=== PATIENT | male | born 1960 ===

== ENCOUNTER → 2024-01-06 10:48 | Outpatient (BNVA) | payer MEDICAID, SELFPAY | PROVIDERS: PCP Registered Nurse; Referring Provider Registered Nurse; Visit Provider Specialist | DX: G40.909 Epilepsy, unspecified, not intractable, without status epilepticus; R03.0 Elevated blood-pressure reading, without diagnosis of hypertension; I63.81 Other cerebral infarction due to occlusion or stenosis of small artery | CPT/HCPCS: 99204; 99205 ==

== ENCOUNTER 2024-02-01 09:43 | Outpatient (CLI) | payer MEDICAID, SELFPAY ==
--- NOTE | 2024-02-01 10:15 | MR_ITS ---
WS: [id number] MRI HEAD WITHOUT CONTRAST TECHNIQUE: Sagittal T1, T2 axial, T2 axial FLAIR, axial and coronal T1 images, axial susceptibility w eighted imaging, axial diffusion weighted images, and coronal T2 images were obtained. CLINICAL INFORMATION: R56.9 - Unspecified convulsions COMPARISON: None. FINDINGS: No evidence of restricted diffusion to suggest acute ischemia. Ventricular system and basal cisterns are patent. Mild small vessel changes. Mild parenchymal volume loss. Chronic infarct LEFT frontal lob e with encephalomalacia and gliosis. Chronic infarcts RIGHT cerebellum. Tiny chronic lacunar infarcts LEFT cerebellum. Normal vascular flow voids at the skull base. No extra-axial fluid collections. No evidence of mass or mass effect. Paranasal sinuses and mastoid air cells are well aerated. Normal pos terior nasopharynx. No hemosiderin on the susceptibility weighted images. Normal optic chiasm and pituitary infundibulum. Temporal lobes and hippocampal formations are normal in appearance. Mild symmetric atrophy temporal lobes and hippocampal formations. MR/MR head wo con* [id number] IMPRESSION: 1. No evidence of restricted diffusion to suggest acute ischemia. 2. Mild small vessel changes with mild parenchymal volume loss. 3. 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 Chronic infarcts in the RIGHT cerebellum. 4. Tiny chronic lacunar infarcts LEFT cerebellum. 5. Mild symmetric atrophy temporal lobes and hippocampal formations which are otherwise normal in appearance. 6. No hemosiderin on the susceptibility weighted images.
== END 2024-02-01 09:44 | disposition home or self-care (01) ==
LOC: RAD 09:44
PROVIDERS: PCP Registered Nurse; Visit Provider Specialist
DX: G93.89 Other specified disorders of brain (principal); R56.9 Unspecified convulsions; Z86.73 Personal history of transient ischemic attack (TIA), and cerebral infarction without residual deficits
CPT/HCPCS: 70551